=== PATIENT | female | born 1985 | race Caucasian/White ===

== ENCOUNTER 2016-08-19 19:30 | Emergency (ER) | payer OTHER | END 2016-08-19 21:00 | disposition left against medical advice (07) | LOC: ER1 19:30 | DX: Z53.21 Procedure and treatment not carried out due to patient leaving prior to being seen by health care provider (principal) ==

== ENCOUNTER → 2016-11-26 | Outpatient (CLI) | payer OTHER | LOC: RAD 15:01 | DX: M54.2 Cervicalgia (principal); M54.9 Dorsalgia, unspecified; R05 Cough; M47.892 Other spondylosis, cervical region | CPT/HCPCS: 71020; 72050; 72072; 72110 ==